=== PATIENT | female | born 1975 | race American Indian/Alaskan Native ===

== ENCOUNTER 2017-08-23 10:24 | Outpatient (CLI) | payer MEDICAID ==
[2017-08-23 11:26] LABS: Hematocrit 32.1 % (30.3-42.9); Mean Corpuscular HGB Conc 34 % (30-34); Mean Corpuscular Hemoglobin 31 pg (28-32); Mean Corpuscular Volume 91 fl (79-97); Platelet Count 257 K/mm3 (140-440); Red Blood Count 3.52 M/mm3 (3.65-5.03); Red Cell Distribution Width 12.7 % (13.2-15.2); White Blood Count 4.8 K/mm3 (4.5-11.0)
[2017-08-23 11:38] LABS: Bacteria,Urine 1+ /HPF (Negative); Bilirubin,Urine NEG (Negative); Blood,Urine NEG (Negative); Ketones,Urine NEG (Negative); Leukocyte Esterase,Urine NEG (Negative); Mucus,Urine 2+ /HPF; Nitrite,Urine NEG (Negative); Protein,Urine <15 mg/dL mg/dL (Negative); Urobilinogen,Urine < 2.0 mg/dL (<2.0)
[2017-08-23 11:40] LABS: Alanine Aminotransferase 9 units/L (7-56); Lactate Dehydrogenase 134 units/L (91-180); Uric Acid 3.1 mg/dL (3.5-7.6)
[2017-08-23 11:48] VITALS: BP 105/57
== END 2017-08-23 12:21 | disposition home or self-care (01) ==
LOC: TRG 10:24
PROVIDERS: ATTEND Obstetrics & Gynecology
DX: O09.522 Supervision of elderly multigravida, second trimester (principal); O47.02 False labor before 37 completed weeks of gestation, second trimester; Z3A.25 25 weeks gestation of pregnancy
CPT/HCPCS: 36415; 81001; 82565; 82962; 83615; 84450; 84460; 84550; 85027

== ENCOUNTER 2017-11-18 12:09 | Inpatient (IN) | payer MEDICAID ==
--- NOTE | 2017-11-18 13:11 | History and Physical Report ---
History of Present Illness Date of examination: 11/18/17 Date of admission: 11/18/17 12:09 Chief complaint: Abnormal testing today History of present illness: 42-year-old ? at 37+4 wks is referred from [facility] for delivery, she is a [facility]. Essential history patient being seen at [facility] for advanced maternal age and pre-gestational diabetes. She complained of decreased movement, BPP done is 2/10. She was referred for delivery She is GBS positive scan shows dilated bowel Past History Past Medical History: diabetes (patient failed her early trimester GTT) Past Surgical History: breast surgery [employer] History: herpes. denies: chlamydia, gonorrhea, hepatitis B, hepatitis C, HIV, syphilis, trichomonas Social history: , full code. denies: Lives alone, lives with family, smoking, alcohol abuse, IV drug use - Obstetrical History Expected Date of Delivery: 12/05/17 Actual Gestation: 37 Week(s) 4 Day(s) : 12 Para: 5 Medications and Allergies Allergies Allergy/AdvReac Type Severity Reaction Status Date / Time No Known Allergies Allergy Verified 02/24/15 14:17 Home Medications Medication Instructions Recorded Confirmed Last Taken Type Ascorbic Acid [Vitamin C] 1 tab PO DAILY 08/23/14 08/23/14 08/22/14 08:00 History Ergocalciferol(Vitamin D2)(Nf) 1 tab PO DAILY 08/23/14 08/23/14 08/22/14 08:00 History [Vitamin D] Vit-Fe Fumar-FA [ 1 tab PO DAILY 08/23/14 08/23/14 08/22/14 08: 00 History Vitamin] Nitrofurantoin [place]/M-Cryst 100 mg PO Q12HR #20 capsule 02/24/15 Unknown Rx [Macrobid] Ondansetron [Zofran Odt] 4 mg PO Q8HR PRN #8 tab.rapdis 02/24/15 Unknown Rx Review of Systems Constitutional: no fever, no chills, no sweats, no fatigue Eyes: no diplopia, no photophobia, no blind spots Cardiovascular: no chest pain, no orthopnea, no syncope, no lightheadedness, no shortness of breath, no dyspnea on exertion, no high blood pressure, no decreased exercise tolerance Respiratory: no cough, no cough with sputum, no shortness of breath, no dyspnea on exertion Gastrointestinal: no abdominal pain, no vomiting, no diarrhea Genitourinary: no vaginal bleeding, no vaginal discharge, no genital sores, no contractions Neurological: no syncope, no headaches - Vital Signs Vital signs: Vital Signs Pulse BP 81 118/59 11/18/17 12:34 11/18/17 12:34 Temp Pulse Resp BP Pulse Ox 98.3 F 81 18 110/59 11/18/17 12:47 11/18/17 12:51 11/18/17 12:47 11/18/17 12:51 - Physical Exam Cardiovascular: Regular rate, Normal S1, Normal S2 Lungs: Positive: Clear to auscultation, Normal air movement Abdomen: Positive: normal appearance, soft. Negative: distention, tenderness, guarding, rigidity Genitourinary (Female): Positive: normal external genitalia Vulva: both: normal Vagina: Positive: normal moisture. Negative: discharge Uterus: Positive: enlarged (EFW 3700 g) Results All other labs normal. Assessment and Plan A: 42-year-old G2, P5 at 37+4 weeks with poor testing -Cat 1 tracing -GBS pos Issues -EFW ~ 3703g, 91st percentile -Dilated Bowel -BPP 0/8 P: -Admit -NICU aware of dilated bowel -Obtain routine labs -Start Pit induction -Anticipate - Patient Problems (1) 37 weeks gestation of Current Visit: Yes Status: Acute (2) Abnormal test Current Visit: Yes Status: Acute (3) Grand multipara Current Visit: Yes Status: Acute (4) AMA (advanced maternal age) multigravida 35+ Current Visit: Yes Status: Acute
[2017-11-18] MEDS ORDERED: ePHEDrine SULFATE IV PRN ×2 (13:19→20:49)
[2017-11-18] MEDS ORDERED: SUBLIMAZE IV PRN (13:19)
[2017-11-18] MEDS ORDERED: BRETHINE SUB-Q PRN (13:19)
[2017-11-18] MEDS ORDERED: MINERAL OIL PO PRN (13:19)
[2017-11-18] MEDS ORDERED: BRETHINE IVP PRN (13:19)
[2017-11-18] MEDS ORDERED: XYLOCAINE 2% INFILTRATI ONE (14:00)
[2017-11-18] MEDS ORDERED: POLYCILLIN/NS 2 GM/100 ML 2 GM/100 ML BAG IV ONE (14:00)
[2017-11-18] MEDS ORDERED: PITOCin/NS 30 UNIT/500ML 30 UNITS/500 ML BAG IV SCH (14:00)
[2017-11-18] MEDS ORDERED: PITOCin/NS 20 UNIT/1000ML DRIP 20 UNITS/1,000 ML BAG IV SCH (14:00)
[2017-11-18] MEDS: LACTATED RINGERS 1,000 ML IV SCH ×2 (14:53→19:28)
[2017-11-18] MEDS: PITOCin/NS 30 UNIT/500ML 30 UNITS/500 ML BAG IV SCH ×4 (15:11→18:00)
[2017-11-18 15:13] LABS: Hematocrit 32.1 % (30.3-42.9); Hemoglobin 10.8 gm/dl (10.1-14.3); Mean Corpuscular HGB Conc 34 % (30-34); Mean Corpuscular Hemoglobin 31 pg (28-32); Mean Corpuscular Volume 92 fl (79-97); Platelet Count 214 K/mm3 (140-440); Red Cell Distribution Width 13.5 % (13.2-15.2)
[2017-11-18] MEDS ORDERED: POLYCILLIN/NS 1 GM/50 ML 1 GM/50 ML BAG IV SCH (17:21)
--- NOTE | 2017-11-18 18:38 | Progress Note ---
Assessment and Plan - Patient Problems (1) 37 weeks gestation of Current Visit: Yes Status: Acute (2) Abnormal test Current Visit: Yes Status: Acute (3) Grand multipara Current Visit: Yes Status: Acute (4) AMA (advanced maternal age) multigravida 35+ Current Visit: Yes Status: Acute Subjective - Subjective Date of service: 11/18/17 Interval history: 5cm dilated Patient reports: new complaints, movement normal, contractions, no loss of fluid, no vaginal bleeding Objective - Vital Signs Vital Signs: Vital Signs - 12hr 11/18/17 11/18/17 11/18/17 12:34 12:47 12:51 Temperature 98.3 F Pulse Rate 81 81 81 Respiratory 18 Rate Blood Pressure 118/59 110/59 Blood Pressure 110/59 [Left] 11/18/17 11/18/17 11/18/17 15:59 16:03 17:02 Temperature 97.8 F Pulse Rate 75 75 77 Respiratory 18 Rate Blood Pressure 120/71 126/65 Blood Pressure 120/71 [Left] 11/18/17 18:03 Temperature Pulse Rate 80 Respiratory Rate Blood Pressure 120/75 Blood Pressure [Left] - Exam FHR: category 1 Cervical Dilatation: 5 station: -3 - Labs Labs: Abnormal Labs 11/18/17 14:00 RBC 3.50 L Laboratory Results - last 24 hr 11/18/17 11/18/17 14:00 14:00 WBC 4.6 RBC 3.50 L Hgb 10.8 Hct 32.1 MCV 92 MCH 31 MCHC 34 RDW 13.5 Plt Count 214 Blood Type AB POSITIVE Antibody Screen Negative
[2017-11-18] MEDS ORDERED: NARCAN 2 MG/2 ML IV PRN (20:49)
[2017-11-18] MEDS ORDERED: SUBLIMAZE ONE (20:59)
--- NOTE | 2017-11-18 21:51 | Anesthesia Consultation ---
Anesthesia Consult and Med Hx Date of service: 11/18/17 - Airway Anesthetic Teeth Evaluation: Good ROM Head & Neck: Adequate Mental/Hyoid Distance: Adequate Mallampati Class: Class II Intubation Access Assessment: Possibly Difficult - Pulmonary Exam CTA: Yes - Cardiac Exam Cardiac Exam: RRR - Pre-Operative Health Status ASA Pre-Surgery Classification: ASA2 Proposed Anesthetic Plan: Epidural, Spinal - Pulmonary Hx Smoking: Yes Hx Asthma: No COPD: No Hx Pneumonia: No - Cardiovascular System Hx Hypertension: No - Central Nervous System Hx Seizures: No Hx Psychiatric Problems: No (hx pp depression; no therapy or meds; resolved spont.) - Endocrine Hx Renal Disease: No Hx End Stage Renal Disease: No Hx Hypothyroidism: No Hx Hyperthyroidism: No - Hematic Hx Anemia: Yes (feso4 BID) Hx Sickle Cell Disease: No - Other Systems Hx Alcohol Use: No
[2017-11-18] MEDS ORDERED: fentaNYL-BUPIV 2 MCG/ML-0.125% 200 MCG/100 ML BAG EPIDURAL SCH (22:00)
[2017-11-19] MEDS ORDERED: CYTOTEC ONE (00:14)
[2017-11-19] MEDS ORDERED: METHERGINE IM ONE (00:33)
[2017-11-19] MEDS ORDERED: CYTOTEC PR ONE ×2 (00:33→00:43)
--- NOTE | 2017-11-19 00:42 | Procedure Note ---
OB Delivery Note - Delivery Date of Delivery: 11/19/17 Surgeon: JERMAN WELSH Estimated blood loss: other (400cc) - Vaginal Delivery presentation: vertex Delivery position: OA Delivery induction: oxytocin Delivery augmentation: rupture of membranes, pitocin Delivery monitor: external FHT, external uterine Route of delivery: Delivery placenta: spontaneous Delivery cord: 3 umbilical vessels Delivery laceration: none Anesthesia: epidural - Infant A at 1 minute: 8 at 5 minutes: 9 Infant Gender: Female (Time of Delivery was 00:25, weight is 6#14 or 3116 g)
[2017-11-19] MEDS ORDERED: MILK OF MAGNESIA PO PRN (00:43)
[2017-11-19] MEDS ORDERED: TUCKS PAD TP PRN (00:43)
[2017-11-19] MEDS ORDERED: BENADRYL PO PRN (00:43)
[2017-11-19] MEDS ORDERED: PHENERGAN PO PRN (00:43)
[2017-11-19] MEDS ORDERED: ZOFRAN IV PRN (00:43)
[2017-11-19] MEDS ORDERED: PHENERGAN PR PRN (00:43)
[2017-11-19] MEDS ORDERED: DULCOLAX PR PRN (00:43)
[2017-11-19] MEDS ORDERED: TYLENOL PO PRN (00:43)
[2017-11-19] MEDS ORDERED: ANUCORT-HC PR PRN (00:43)
[2017-11-19] MEDS ORDERED: NORCO 5/325 PO PRN (00:43)
[2017-11-19] MEDS ORDERED: PITOCin/NS 20 UNIT/1000ML DRIP 20 UNITS/1,000 ML BAG IV SCH (01:00)
[2017-11-19] MEDS ORDERED: SODIUM CHLORIDE FLUSH SYRINGE 10 ML IV NR (01:00)
[2017-11-19] MEDS: METHERGINE PO SCH ×3 (07:46→22:11)
[2017-11-19] MEDS: COLACE PO SCH ×2 (09:28→22:11)
[2017-11-19] MEDS: PRENATAL VITAMIN PO SCH (09:28)
[2017-11-19] MEDS: FEOSOL PO SCH ×2 (09:28→22:11)
[2017-11-19] MEDS: MOTRIN PO SCH ×3 (10:11→23:34)
[2017-11-19] MEDS: LANSINOH TP PRN (10:12)
[2017-11-19 13:26] LABS: Hematocrit 27.3 % (30.3-42.9); Hemoglobin 9.5 gm/dl (10.1-14.3)
[2017-11-19] MEDS: SENOKOT S PO SCH ×2 (14:45→23:41)
[2017-11-20] MEDS: METHERGINE PO SCH (05:36)
[2017-11-20] MEDS: MOTRIN PO SCH ×5 (05:36→23:42)
[2017-11-20] MEDS ORDERED: BOOSTRIX IM ONE (06:00)
--- NOTE | 2017-11-20 09:38 | Progress Note ---
Assessment and Plan - Patient Problems (1) Normal spontaneous vaginal delivery Onset Date: 11/20/17 Current Visit: No Status: Resolved Plan to address problem: A: S/P - PPD #1 Doing well GDM - stable P: May go home today Subjective - Subjective Date of service: 11/20/17 Principal diagnosis: s/p - PPD #1 Interval history: Pt is feeling well without complaints. Bleeding improved. Patient reports: appetite normal, voiding normally, pain well controlled, flatus , ambulating normally : doing well, nursing well Objective - Vital Signs Latest vital signs: Vital Signs Temp Pulse Resp BP BP Pulse Ox 11/20/17 01:05 97.9 F 82 18 109/61 11/19/17 16:27 98.5 F 81 16 112/55 98 11/19/17 12:10 98.9 F 84 20 111/54 98 Intake and Output 11/19/17 11/20/17 11/20/17 22:59 06:59 14:59 Intake Total 480 560 Balance 480 560 Intake: Oral 480 200 Intake, Free Water 360 Other: Total, Intake Amount 480 200 # Voids Void 1 - Exam Breasts: Present: deferred Cardiovascular: Present: Regular rate Lungs: Present: Clear to auscultation Abdomen: Present: normal appearance Uterus: Present: normal, firm, fundal height below umbilicus Extremities: Present: normal - Labs Labs: Abnormal lab results 11/19/17 11/19/17 11/19/17 Range/Units 12:22 12:47 23:19 Hgb 9.5 L (10.1-14.3) gm/dl Hct 27.3 L (30.3-42.9) % POC Glucose 164 H 125 H (70-105) Laboratory Tests 11/18/17 11/18/17 11/18/17 14:00 14:00 14:00 WBC 4.6 RBC 3.50 L Hgb 10.8 Hct 32.1 MCV 92 MCH 31 MCHC 34 RDW 13.5 Plt Count 214 POC Glucose RPR Nonreactive Blood Type AB POSITIVE Antibody Screen Negative 11/19/17 11/19/17 11/19/17 12:22 12:47 17:35 WBC RBC Hgb 9.5 L Hct 27.3 L MCV MCH MCHC RDW Plt Count POC Glucose 164 H 81 RPR Blood Type Antibody Screen 11/19/17 11/20/17 23:19 08:59 WBC RBC Hgb Hct MCV MCH MCHC RDW Plt Count POC Glucose 125 H 75 RPR Blood Type Antibody Screen
--- NOTE | 2017-11-20 09:42 | Discharge Summary ---
Providers - Providers Date of Admission: 11/18/17 12:09 Date of discharge: 11/20/17 Attending physician: JERMAN WELSH Primary care physician: KINGSLEY VALLE Hospitalization Reason for admission: induction of labor, IUP at term Delivery: Episiotomy: none Laceration: none Other procedures: none complications: none Discharge diagnosis: IUP at term delivered [place] baby: female Hospital course: Unremarkable. Condition at discharge: Good Disposition: DC-01 TO HOME OR SELFCARE - Discharge Diagnoses (1) Normal spontaneous vaginal delivery Status: Resolved Plan - Discharge Medications Prescriptions: HYDROcodone/APAP 5-325 [[place] 5/325] 1 each PO Q6HR PRN #7 tablet PRN Reason: Pain Ibuprofen [Motrin 600 MG tab] 600 mg PO Q8H PRN #30 tablet PRN Reason: Pain Multivitamin with Iron [Multivitamins with Iron] 1 each PO DAILY #30 tablet - Provider Discharge Summary Activity: routine, no sex for 6 weeks, no heavy lifting 4 weeks, no strenuous exercise Diet: routine Instructions: routine Additional instructions: [] Smoking cessation referral if applicable(refer to patient education folder for contact #) [] Refer to [facility] Booklet Call your doctor immediately for: * Fever > 100.5 * Heavy vaginal bleeding ( >1 pad per hour) * Severe persistent headache * Shortness of breath * Reddened, hot, painful area to leg or breast * Drainage or odor from incision. * Keep incision clean and dry at all times and follow doctor's instructions regarding bathing/showering Will need 2hr OGTT at visit - Follow up plan Follow up: KINGSLEY VALLE MD [Primary Care Provider] - 6 Weeks
[2017-11-20] MEDS: PRENATAL VITAMIN PO SCH (10:22)
[2017-11-20] MEDS: FEOSOL PO SCH ×2 (10:22→21:47)
[2017-11-20] MEDS: SENOKOT S PO SCH (12:39)
[2017-11-20] MEDS: COLACE PO SCH (21:47)
[2017-11-21] MEDS: SENOKOT S PO SCH (00:03)
[2017-11-21] MEDS: MOTRIN PO SCH ×2 (05:41→12:03)
[2017-11-21 10:40] VITALS: BP 117/58
[2017-11-21] MEDS: PRENATAL VITAMIN PO SCH (12:03)
[2017-11-21] MEDS: LANSINOH TP PRN (12:04)
[2017-11-21] MEDS: FEOSOL PO SCH (12:04)
== END 2017-11-21 14:15 | disposition home or self-care (01) | DRG 774 ==
LOC: LD 12:09 → OB 11-19 03:14
PROVIDERS: ADMIT Obstetrics & Gynecology Gynecology; ATTEND Obstetrics & Gynecology Gynecology
PROC: 10E0XZZ Delivery of Products of Conception, External Approach (ICD-10-PCS; principal; 2017-11-19)
PROC: 3E033VJ Introduction of Other Hormone into Peripheral Vein, Percutaneous Approach (ICD-10-PCS; 2017-11-19)
PROC: 3E0R3BZ Introduction of Anesthetic Agent into Spinal Canal, Percutaneous Approach (ICD-10-PCS; 2017-11-19)
PROC: 00HU33Z Insertion of Infusion Device into Spinal Canal, Percutaneous Approach (ICD-10-PCS; 2017-11-19)
PROC: 3E0234Z Introduction of Serum, Toxoid and Vaccine into Muscle, Percutaneous Approach (ICD-10-PCS; 2017-11-20)
DX: O99.824 Streptococcus B carrier state complicating childbirth (principal); O24.92 Unspecified diabetes mellitus in childbirth; O99.334 Smoking (tobacco) complicating childbirth; F17.200 Nicotine dependence, unspecified, uncomplicated; O99.02 Anemia complicating childbirth; D64.9 Anemia, unspecified; Z3A.37 37 weeks gestation of pregnancy; Z37.0 Single live birth; Z23 Encounter for immunization
CPT/HCPCS: 36415; 82962; 85014; 85018; 85027; 86592; 86850; 86900; 86901; 90471; 99211; A6250; G0463; J0290; J2210; J2590; J3010; J7120